=== PATIENT | female | born 1940 | race Caucasian/White ===

== ENCOUNTER 2017-09-23 12:37 | Emergency (ER) | payer MEDICARE ==
[2017-09-23 13:35] LABS: #Eosinphils 0.1 thou/uL (0.0-0.7); #Lymphocytes 0.7 thou/uL (1.20-3.40); #Monocytes 0.5 thou/uL (0.11-0.59); %Eosinophils 1.5 % (0.0-10.0); %Lymphocytes 12.3 % (21.0-51.0); %Monocytes 9.3 % (0.0-10.0); %Neutrophils 76.9 % (42.0-75.0); Hemoglobin 13.2 g/dL (12.0-16.0); Mean Corpuscular HGB CONC 33.8 g/dL (32.0-36.0); Mean Corpuscular Hemoglobin 31.8 pg (27.0-31.0); Mean Corpuscular Volume 93.9 fl (81.0-99.0); Platelet Count 232 thou/uL (130-400); RBC Distribution Width 11.5 % (11.5-14.5); Red Blood Cell (RBC) Count 4.15 mill/uL (4.20-5.40); White Blood Cell (WBC) Count 5.2 thou/uL (4.8-10.8)
--- NOTE | 2017-09-23 13:38 | RAD ---
CHEST 2 VIEWS: Date: 09/23/17 HISTORY: Chest pain. Fever. FINDINGS: No comparison. The cardiac silhouette and pulmonary vasculature are unremarkable. Mediastinum is midline with aortic calcification. There is no confluent air space consolidation, pneumothorax, or pleural fluid apparen t Metallic clips overlie the left axilla and the right upper quadrant of the abdomen. IMPRESSION: 1. Atherosclerosis. 2. No active cardiopulmonary abnormalities are demonstrated. POS: [facility]
[2017-09-23 14:02] LABS: ALT (SGPT) 17 U/L (8-55); AST (SGOT) 19 U/L (5-34); Alkaline Phosphatase 84 U/L (40-150); Anion Gap 14 mmol/L (10-20); BUN (Urea Nitrogen) 8 mg/dL (9.8-20.1); Bilirubin, Total 0.5 mg/dL (0.2-1.2); CK (CPK) 104 U/L (29-168); Calc. Creatinine Clearance 0 mL/min (70-130); Calcium 9.7 mg/dL (7.8-10.44); Carbon Dioxide 26 mmol/L (23-31); Chloride 99 mmol/L (98-107); Estimated GFR-MDRD 66; Globulin 2.6 g/dL (2.4-3.5); Glucose 145 mg/dL (83-110); Potassium 3.7 mmol/L (3.5-5.1); Protein, Total 6.6 g/dL (6.0-8.3); Sodium 135 mmol/L (136-145)
[2017-09-23 14:05] LABS: CKMB 1.2 ng/mL (0-6.6); Troponin I Less than 0.010 ng/mL (< 0.028)
--- NOTE | 2017-09-23 14:14 | ULT ---
RIGHT NECK SOFT TISSUE SONOGRAM: HISTORY: Palpable lump at the right supraclavicular area. FINDINGS: Sonographic evaluation of the area of palpable concern, adjacent to the right clavicle, was performed . No solid or cystic masses are apparent. IMPRESSION: No significant abnormalities are demonstrated. POS: [facility]
[2017-09-23] MEDS ORDERED: Oseltamivir 75 MG CAP PO SCH (14:45)
== END 2017-09-23 15:20 | disposition home or self-care (01) ==
LOC: ERS 12:37
DX: J10.1 Influenza due to other identified influenza virus with other respiratory manifestations (principal); E11.9 Type 2 diabetes mellitus without complications; I10 Essential (primary) hypertension; Z79.4 Long term (current) use of insulin
CPT/HCPCS: 71046; 76536; 80053; 82553; 83880; 84484; 85025; 93005; 96360

== ENCOUNTER 2017-09-28 01:45 | Emergency (ER) | payer MEDICARE | END 2017-09-28 02:44 | disposition home or self-care (01) | LOC: ERS 01:45 | DX: J01.90 Acute sinusitis, unspecified (principal); R59.0 Localized enlarged lymph nodes; I10 Essential (primary) hypertension | CPT/HCPCS: 99283 ==

== ENCOUNTER 2017-12-30 12:54 | Outpatient (CLI) | payer MEDICARE, MEDICAID ==
--- NOTE | 2017-12-30 14:09 | ULT ---
RIGHT LOWER EXTREMITY VENOUS ULTRASOUND WITH DOPPLER: Date: 12/30/17 HISTORY: Swelling. Pain. Edema. COMPARISON: None. TECHNIQUE: Ibrahim scale, color flow, Doppler imaging, and spectral waveform analysis performed of the right lower extremity venous system. FINDINGS: There was compressibility, presence of flow, and augmentation in the common femoral, femoral vein, an d popliteal vein. There was flow in greater saphenous vein, profunda vein, and posterior tibial vein. Espino's cyst in popliteal fossa measuring 3.4 x 4.4 x 1.5 cm. IMPRESSION: 1. No evidence of thrombus in the right lower extremity deep venous system. 2. Right Espino's cyst. POS: [facility]
== END 2017-12-30 12:55 | disposition home or self-care (01) ==
LOC: ULT 12:54
PROVIDERS: ATTEND Family Medicine
DX: R60.0 Localized edema (principal); M71.21 Synovial cyst of popliteal space [Baker], right knee

== ENCOUNTER 2018-07-22 19:19 | Emergency (ER) | payer MEDICARE ==
[2018-07-22] MEDS ORDERED: Lorazepam 2 MG/ML VIAL ONE (20:31)
[2018-07-22] MEDS ORDERED: Haloperidol Lactate 5 MG/ML VIAL ONE (20:32)
[2018-07-22 21:06] LABS: Bilirubin Negative (Negative); Blood, Urine Negative (Negative); Clarity CLEAR (Clear); Glucose, Urine (Dipstick) Negative (Negative); Leukocyte Negative (Negative); Nitrite Negative (Negative); Protein, Urine (Dipstick) Negative (Neg-Trace); Specific Gravity, Urine 1.006 (1.002-1.036)
[2018-07-22 21:15] LABS: Amphetamine Not Detected (NotDetected); Barbiturates Screen Not Detected (NotDetected); Benzodiazepine Screen Not Detected (NotDetected); Cocaine Metabolite Screen Not Detected (NotDetected); Medtox Control Line Valid? VALID (VALID); Medtox Reader # READER 1; Methadone Not Detected (NotDetected); Methamphetamine Not Detected (NotDetected); Opiate Screen Not Detected (NotDetected); Oxycodone Screen Not Detected (NotDetected); Phencyclidine (PCP) Not Detected (NotDetected); THC/Cannabinoid Screen Not Detected (NotDetected); Tricyclic Screen Not Detected (NotDetected)
[2018-07-22 22:33] LABS: #Basophils 0.1 thou/uL (0.0-0.2); #Eosinphils 0.1 thou/uL (0.0-0.7); #Lymphocytes 1.8 thou/uL (1.20-3.40); #Monocytes 0.4 thou/uL (0.11-0.59); #Neutrophils 4.2 thou/uL (1.40-6.50); %Basophils 1.1 % (0.0-1.0); %Eosinophils 1.1 % (0.0-10.0); %Lymphocytes 27.3 % (21.0-51.0); %Monocytes 5.8 % (0.0-10.0); %Neutrophils 64.7 % (42.0-75.0); Hemoglobin 12.6 g/dL (12.0-16.0); Mean Corpuscular HGB CONC 32.9 g/dL (32.0-36.0); Mean Corpuscular Hemoglobin 30.6 pg (27.0-31.0); Mean Corpuscular Volume 92.9 fL (78.0-98.0); Mean Platelet Volume 8.8 fL (7.4-10.4); Platelet Count 317 thou/uL (130-400); RBC Distribution Width 11.7 % (11.5-14.5); Red Blood Cell (RBC) Count 4.13 mill/uL (4.20-5.40); White Blood Cell (WBC) Count 6.5 thou/uL (4.8-10.8)
[2018-07-22 22:54] LABS: ALT (SGPT) 20 U/L (8-55); AST (SGOT) 21 U/L (5-34); Acetaminophen Less than 6.0 mcg/mL (10.0-30.0); Albumin 3.8 g/dL (3.4-4.8); Alcohol 93 mg/dL (Less than 10); Alkaline Phosphatase 72 U/L (40-150); Anion Gap 17 mmol/L (10-20); BUN (Urea Nitrogen) 8 mg/dL (9.8-20.1); Bilirubin, Total 0.4 mg/dL (0.2-1.2); CK (CPK) 243 U/L (29-168); Calc. Creatinine Clearance 0 mL/min (70-130); Calcium 9.3 mg/dL (7.8-10.44); Carbon Dioxide 19 mmol/L (23-31); Chloride 105 mmol/L (98-107); Estimated GFR-MDRD 55; Globulin 2.6 g/dL (2.4-3.5); Glucose 182 mg/dL (83-110); Potassium 3.6 mmol/L (3.5-5.1); Protein, Total 6.4 g/dL (6.0-8.3); Salicylate Less than 8.0 mg/dL (15.0-30.0); Sodium 137 mmol/L (136-145)
== END 2018-07-23 10:17 ==
LOC: ERS 19:19
DX: R45.851 Suicidal ideations (principal); R45.1 Restlessness and agitation; E11.9 Type 2 diabetes mellitus without complications; Z79.4 Long term (current) use of insulin; I10 Essential (primary) hypertension; F32.9 Major depressive disorder, single episode, unspecified
CPT/HCPCS: 36415; 36416; 51701; 80053; 80306; 80307; 81003; 82550; 84443; 85025; 94002; 96372; A4353; J1630; J2060

== ENCOUNTER 2019-08-11 07:16 | Emergency (ER) | payer MEDICARE ==
[2019-08-11 07:51] LABS: #Basophils 0.1 thou/uL (0.0-0.2); #Eosinphils 0.3 thou/uL (0.0-0.7); #Lymphocytes 2.9 thou/uL (1.20-3.40); #Monocytes 0.5 thou/uL (0.11-0.59); %Basophils 1.3 % (0.0-1.0); %Eosinophils 3.9 % (0.0-10.0); %Lymphocytes 43.3 % (21.0-51.0); %Monocytes 7.5 % (0.0-10.0); Hemoglobin 13.3 g/dL (12.0-16.0); Mean Corpuscular HGB CONC 34.2 g/dL (32.0-36.0); Mean Corpuscular Volume 90.6 fL (78.0-98.0); Mean Platelet Volume 8.5 fL (7.4-10.4); Platelet Count 313 thou/uL (130-400); RBC Distribution Width 11.5 % (11.5-14.5); Red Blood Cell (RBC) Count 4.28 mill/uL (4.20-5.40); White Blood Cell (WBC) Count 6.8 thou/uL (4.8-10.8)
[2019-08-11 08:05] LABS: ALT (SGPT) 21 U/L (8-55); AST (SGOT) 17 U/L (5-34); Albumin 4.3 g/dL (3.4-4.8); Alkaline Phosphatase 79 U/L (40-110); Anion Gap 13 mmol/L (10-20); BUN (Urea Nitrogen) 8 mg/dL (9.8-20.1); Bilirubin, Total 0.4 mg/dL (0.2-1.2); CK (CPK) 73 U/L (29-168); Calc. Creatinine Clearance 0 mL/min (70-130); Calcium 9.7 mg/dL (7.8-10.44); Carbon Dioxide 27 mmol/L (23-31); Chloride 102 mmol/L (98-107); Estimated GFR-MDRD 69; Globulin 2.8 g/dL (2.4-3.5); Glucose 194 mg/dL (83-110); Lipase 31 U/L (8-78); Potassium 3.7 mmol/L (3.5-5.1); Protein, Total 7.1 g/dL (6.0-8.3); Sodium 138 mmol/L (136-145)
--- NOTE | 2019-08-11 08:47 | CT ---
CT Abdomen Pelvis W Con HISTORY: Abdominal pain and diarrhea. COMPARISON: None. FINDINGS: The lung bases are clear of infiltrative process. The liver shows evidence for fatty change. The spleen is within normal limits of size. Pancreas shows no evidence of mass. The gallbladder has been removed. There is a hiatal hernia noted. Right and left adrenal glands and right and left kidneys are normal in size there are hypodensities s een within the kidneys most compatible with cyst, some of which are too small to characterize. There is no significant periaortic or mesenteric adenopathy. CT of pelvis performed with contrast enhancement: The bladder is distended. There is no pelvic lympha denopathy or mass. The appendix is not identified but there is no inflammatory change. Postoperative changes of the pelvis are noted. Review of osseous structures show arthritic changes of the spine. IMPRESSION: 1. Small hiatal hernia. 2. Mild fatty change of liver and postop cholecystectomy change. 3. No acute findings of the abdomen or pelvis.
[2019-08-11] MEDS ORDERED: Iopamidol-370 76% 500 ML 1 ML ONE (12:17)
== END 2019-08-11 09:45 | disposition home or self-care (01) ==
LOC: ERS 07:16
DX: R19.7 Diarrhea, unspecified (principal); R10.9 Unspecified abdominal pain; E11.9 Type 2 diabetes mellitus without complications; I10 Essential (primary) hypertension; F32.9 Major depressive disorder, single episode, unspecified; Z79.4 Long term (current) use of insulin; Z79.899 Other long term (current) drug therapy
CPT/HCPCS: 74177; 80053; 82550; 83690; 85025; 96360; Q9967